=== PATIENT | female | born 2000 | race Two or more races ===

== ENCOUNTER → 2025-04-18 | Emergency (ER) | payer OTHER ==
[~2025-04-18] VITALS: Ht 165.1 cm; Wt 61.2 kg
[~2025-04-18] MED LIST: BUSPIRONE HCL7.5 MG; ONDANSETRON 4 MG TAB.RAPDIS PO ONE; PAXIL20 MG
[2025-04-18 09:32] LABS: COVID-19 AG NEGATIVE (NEGATIVE)
[2025-04-18 10:00] LABS: BUN CREA RATIO 14.0 (7.0-25.0); CREATININE SERUM 0.7 mg/dL (0.55-1.02); GFR 102.8; GLUCOSE FASTING 62.0 mg/dL (65-100); OSMOLALITY SERUM 282.0 MOSM/KG (275-295)
[2025-04-18 10:02] LABS: BASO % 1.1 % (0.1-1.2); EOS # 0.11 (0.04-0.54); EOS % 1.7 % (0.7-7.0); LYMPH # 1.76 (1.18-3.74); LYMPH % 26.6 % (19.3-53.1); MEAN PLATELET VOLUME 10.30 fl (9.4-12.4); MONO # 0.29 (0.24-0.82); MONO % 4.4 % (4.7-12.5); NEUT # 4.38 (1.56-6.13); NEUT % 66.0 % (34.0-71.1); RED CELL DISTRIBUTION WIDTH 12.2 % (11.6-14.4)
== END | disposition home or self-care (01) ==
LOC: ER 05:54
PROVIDERS: Emergency Medicine
DX: O20.8 Other hemorrhage in early pregnancy (principal); Z88.6 Allergy status to analgesic agent; Z3A.10 10 weeks gestation of pregnancy